=== PATIENT | male | born 1945 | race Caucasian/White ===

== ENCOUNTER 2020-09-25 13:21 | Day surgery (SDC) | payer MEDICARE ==
[~2020-09-25] VITALS: Ht 180.3 cm; Wt 112.3 kg
[2020-09-25] MEDS ORDERED: ASPI325 PO (14:13)
[2020-09-25] MEDS ORDERED: METF500C PO (14:13)
[2020-09-25] MEDS ORDERED: FINA5 PO (14:13)
[2020-09-25] MEDS ORDERED: METO100 PO (14:14)
[2020-09-25] MEDS ORDERED: PRAVASTATIN SOD40 MG PO (14:14)
[2020-09-25] MEDS ORDERED: DICLOFENAC SOD100 GM TP (14:14)
[2020-09-25] MEDS ORDERED: LOTREL 10-40 M1 EACH PO (14:15)
[2020-09-25] MEDS ORDERED: VICTOZA 2-0.6 MG/0.1 SQ (14:15)
[2020-09-25] MEDS ORDERED: TAMS.4ER PO (14:15)
== END 2020-09-25 15:34 | disposition home or self-care (01) ==
LOC: ORSCSDS 13:21
PROVIDERS: Internal Medicine Gastroenterology
PROC: 0DJD8ZZ Inspection of Lower Intestinal Tract, Via Natural or Artificial Opening Endoscopic (ICD-10-PCS; principal; 2020-09-25 14:45)
DX: Z12.11 Encounter for screening for malignant neoplasm of colon (principal); Z86.010 Personal history of colon polyps; K57.30 Diverticulosis of large intestine without perforation or abscess without bleeding; E66.9 Obesity, unspecified; Z68.36 Body mass index [BMI] 36.0-36.9, adult; E11.9 Type 2 diabetes mellitus without complications; Z79.84 Long term (current) use of oral hypoglycemic drugs; Z79.899 Other long term (current) drug therapy
CPT/HCPCS: 82947; J2704; J7120

== ENCOUNTER 2025-01-15 06:11 | Day surgery (SDC) | payer MEDICARE ==
[~2025-01-15] VITALS: Ht 180.3 cm; Wt 100.9 kg
[~2025-01-15 06:11] MED LIST: ASPI325 PO; DICLOFENAC SOD100 GM TP; FINA5 PO; LOTREL 10-40 M1 EACH PO; METF500C PO; METO100 PO; NAC600 MG PO; OZEMPIC0.25 MG/02 SQ; PRAVASTATIN SOD40 MG PO; TAMS.4ER PO; Tranexamic Acid 100 ML IV ONE; VICTOZA 2-0.6 MG/0.1 SQ
[2025-01-15] MEDS ORDERED: CefTRIAXone Sodium 2,000 MG in NS 100 ML IV SCH (06:40)
[2025-01-15] MEDS ORDERED: Bupivacaine 0.5% W/EPI 1:200000 SDV 30 ML Vial ONE (06:47)
[2025-01-15] MEDS ORDERED: FentaNYL Citrate 50 MCG/ML 2 ML Injection ONE (07:10)
[2025-01-15] MEDS ORDERED: Midazolam HCl 1MG / ML 2ML Vial ONE (07:10)
[2025-01-15] MEDS ORDERED: Ondansetron HCl 2 MG / ML 2ML Vial ONE (07:11)
[2025-01-15] MEDS ORDERED: Dexamethasone Sod Phos 10 MG/ML 1ML VIAL ONE ×2 (07:11→07:12)
[2025-01-15] MEDS ORDERED: Rocuronium Bromide 10 MG/ML 5ML Injection IV ONE ×2 (07:11→08:19)
[2025-01-15] MEDS ORDERED: Ropivacaine 0.5% HCL/PF 5 MG/ML 30ML Vial ONE (07:12)
[2025-01-15] MEDS ORDERED: Lidocaine HCl 4% 5 ML SDA ONE (07:12)
--- NOTE | 2025-01-15 07:19 | NUR ---
01/15/25 0719 STEPHANIE GARCIA CASE DELAYED DUE TO SURGEON DELAY
[2025-01-15] MEDS ORDERED: Phenylephrine HCl 100 MCG/ML-NS 10MLSYR (1MG/10ML) ONE (08:14)
[2025-01-15] MEDS ORDERED: ePHEDrine Sulfate 50 MG/ML 1ML Injection ONE (08:26)
[2025-01-15] MEDS ORDERED: Sugammadex Sodium 200 MG/2ML SDV (100 MG/ML) ONE (08:33)
[2025-01-15] MEDS ORDERED: Tranexamic Acid 100 ML IV ONE (10:57)
[2025-01-15 11:27] VITALS: BP 103/50
== END 2025-01-15 12:30 | disposition home or self-care (01) ==
LOC: ORSCSDS 06:11
PROVIDERS: Orthopaedic Surgery
PROC: 0RRJ00Z Replacement of Right Shoulder Joint with Reverse Ball and Socket Synthetic Substitute, Open Approach (ICD-10-PCS; principal; 2025-01-15 07:30)
DX: M19.011 Primary osteoarthritis, right shoulder (principal); I10 Essential (primary) hypertension; G47.33 Obstructive sleep apnea (adult) (pediatric); E11.9 Type 2 diabetes mellitus without complications; N40.0 Benign prostatic hyperplasia without lower urinary tract symptoms; Z79.84 Long term (current) use of oral hypoglycemic drugs; Z79.85 Long-term (current) use of injectable non-insulin antidiabetic drugs; Z79.899 Other long term (current) drug therapy
CPT/HCPCS: 73030; 82947; A9270; C1713; C1776; J0696; J1100; J2003; J2250; J2371; J2405; J2704; J2795; J3010; J3373; J7050; J7120

== ENCOUNTER → 2025-02-06 | Outpatient (CLI) | payer MEDICARE ==
[~2025-02-06] MED LIST changes: -Tranexamic Acid 100 ML IV ONE
== END ==
LOC: LAB SHORT 11:30 → LAB 11:30
DX: E11.21 Type 2 diabetes mellitus with diabetic nephropathy (principal)
CPT/HCPCS: 82043